=== PATIENT | male | born 1985 | race Caucasian/White ===

== ENCOUNTER 2018-12-26 14:12 | Outpatient (CLI) | payer OTHER ==
--- NOTE | 2018-12-26 14:27 | RAD ---
Exam:2 views left hip HISTORY: Psoriasis. Psoriatic arthritis. Rheumatoid arthritis. COMPARISON: None FINDINGS: Joint spaces preserved. No fracture or malalignment. Visualized sacrum and bony pelvis are unremarkable IMPRESSION: Unremarkable exam.
--- NOTE | 2018-12-26 14:41 | RAD ---
RADIOGRAPH LUMBAR SPINE 3 VIEWS: DATE: 12/26/18 HISTORY: 33-year-old male with chronic low back pain. FINDINGS: Vertebral body heights are maintained. There are five lumbar-type vertebrae. No scoliosis. No high gr vanda disc space narrowing at any level. Mild anterior wedge loss of height of T12 and L1 of indetermin ate age, presumably chronic. IMPRESSION: No major pathology identified. JN [] POS: TPC
--- NOTE | 2018-12-26 14:47 | RAD ---
2 VIEW RIGHT KNEE: Date: 12/26/18 INDICATION: Disability evaluation. FINDINGS: There is no evidence of fracture or significant osseous abnormality of the right knee. No joint capsu lar distention. IMPRESSION: No acute osseous abnormality of the right knee. POS: OFF
== END 2018-12-26 14:13 | disposition home or self-care (01) ==
LOC: NAV RAD 14:12
PROVIDERS: ATTEND Family Medicine
DX: Z02.71 Encounter for disability determination (principal); M06.9 Rheumatoid arthritis, unspecified; L40.50 Arthropathic psoriasis, unspecified; M25.462 Effusion, left knee
CPT/HCPCS: 72100